=== PATIENT | female | born 1970 | race African-American/Black ===

== ENCOUNTER 2020-09-14 11:58 | Emergency (ER) | payer OTHER ==
[~2020-09-14] VITALS: Ht 167.6 cm; Wt 77.1 kg
[2020-09-14 12:14] VITALS: BP_SYST 131
[2020-09-14] MEDS ORDERED: PRED50TA PO (12:43)
[2020-09-14] MEDS ORDERED: HYDR50TA61 PO (12:43)
[2020-09-14] MEDS ORDERED: predniSONE 20 MG TABLET PO ONE (12:45)
[2020-09-14 13:15] VITALS: BP_SYST 131
== END 2020-09-14 13:15 | disposition home or self-care (01) ==
LOC: SED 11:58
DX: L50.9 Urticaria, unspecified (principal); Z88.2 Allergy status to sulfonamides; Z88.0 Allergy status to penicillin
CPT/HCPCS: 99283; J7512